=== PATIENT | male | born 1990 | race Caucasian/White ===

== ENCOUNTER 2023-03-03 07:58 | Emergency (ER) | payer OTHER ==
[2023-03-03] MEDS ORDERED: MECLIZINE 12.5 MG TABLET PO STA (08:30)
[2023-03-03 08:53] LABS: BASOPHILS # (AUTO) 0.1 10^3/uL (0.0-0.1); BASOPHILS % (AUTO) 0.9 %; EOSINOPHILS # (AUTO) 0.1 10^3/uL (0.0-0.7); EOSINOPHILS % (AUTO) 1.1 %; HCT - HEMATOCRIT 46.9 % (42.0-52.0); HGB - HEMOGLOBIN 15.6 g/dL (14.0-18.0); LYMPHOCYTES # (AUTO) 1.3 10^3/uL (1.5-3.5); LYMPHOCYTES % (AUTO) 23.6 %; MEAN CORPUSCULAR HEMOGLOBIN 29.7 pg (27.0-31.0); MEAN CORPUSCULAR HGB CONC 33.3 g/dL (32.0-36.0); MEAN CORPUSCULAR VOLUME 89.3 fL (80.0-94.0); MEAN PLATELET VOLUME 9.2 fL (7.4-11.4); MONOCYTES # (AUTO) 0.4 10^3/uL (0.0-1.0); NEUTROPHILS # (AUTO) 3.7 10^3/uL (1.5-6.6); PLT - PLATELET COUNT 277 10^3/uL (130-450); RED BLOOD COUNT 5.25 10^6/uL (4.70-6.10); RED CELL DISTRIBUTION WIDTH 12.1 % (12.0-15.0); WHITE BLOOD COUNT 5.5 x10^3/uL (4.8-10.8)
[2023-03-03 09:06] LABS: ALBUMIN 4.3 g/dL (3.2-5.5); ALBUMIN/GLOBULIN RATIO 1.5 (1.0-2.2); BILIRUBIN,TOTAL 0.3 mg/dL (0.2-1.0); CALCIUM 9.2 mg/dL (8.5-10.3); CREATININE 0.9 mg/dL (0.6-1.3); MAGNESIUM 1.9 mg/dL (1.7-2.3); POTASSIUM 3.9 mmol/L (3.5-4.5); TOTAL PROTEIN 7.2 g/dL (6.4-8.9)
--- NOTE | 2023-03-03 09:14 | ED Physician Documentation ---
PD HPI HEENT - Stated complaint Stated Complaint: DIZZY/DISORIENTED/BLURRED VISION - Chief complaint Chief Complaint: General - History obtained from History obtained from: Patient, EMS - History of Present Illness Timing - onset: Today Timing - duration: Minutes Timing - details: Abrupt onset (onset of vertigo this morning in shower ewhen turned head/moved. No headache nor other focal symptoms. Improved with sitting down for few minutes. Homer okay then until in work and leaned back in his chair and rested head back on headrest, abrupt vertigo again. This persisted several minutes.), Intermittant Location: Other (vertigo with head movement, improves when sits still.) Worsens: Position Associated symptoms: No: Fever, Congestion, Rhinorrhea, Headache Similar symptoms before: Has not had sx before Recently seen: Not recently seen Review of Systems Constitutional: denies: Fever, Chills Ears: denies: Ear pain, Drainage/discharge, Tinnitus/ringing Nose: denies: Rhinorrhea / runny nose, Congestion, Sinus pressure / pain Throat: denies: Sore throat Respiratory: denies: Cough Musculoskeletal: denies: Neck pain, Back pain Neurologic: denies: Focal weakness, Numbness, Difficulty speaking, Confused, Altered mental status PD PAST MEDICAL HISTORY - Past Medical History Cardiovascular: None Respiratory: None Neuro: None Endocrine/Autoimmune: None - Present Medications Home Medications: Ambulatory Orders Medication Instructions Recorded Confirmed Cetirizine [ZyrTEC] 10 mg PO BID #14 tablet 03/03/23 Meclizine HCl [Motion Sickness] 25 mg PO Q6H PRN #30 tablet 03/03/23 dexAMETHasone [Decadron] 4 mg PO DAILY #5 tablet 03/03/23 - Allergies Allergies/Adverse Reactions: Allergies Allergy/AdvReac Type Severity Reaction Status Date / Time No Known Drug Allergies Allergy Verified 03/03/23 08:07 PD ED PE NORMAL - Vitals Vital signs reviewed: Yes - General General: Alert and oriented X 3, No acute distress (he feels okay when just sitting still on cart. ), Well developed/nourished - HEENT HEENT: PERRL, EOMI (nystagmus to the left after turning head and having vertigo symptoms. ), Ears normal, Pharynx benign - Neck Neck: Supple, no meningeal sign, No adenopathy, No bruit - Cardiac Cardiac: RRR, No murmur - Respiratory Respiratory: Clear bilaterally - Derm Derm: Normal color, Warm and dry - Extremities Extremities: Normal ROM s pain, No edema, No calf tenderness / cord - Neuro Neuro: Alert and oriented X 3, medical support specialist 2-12 intact, No motor deficit, No sensory deficit, Normal speech Eye Opening: Spontaneous Motor: Obeys Commands Verbal: Oriented GCS Score: 15 Results - Vitals Vitals: Vital Signs - 24 hr 03/03/23 03/03/23 03/03/23 08:04 10:07 11:57 Temperature 36.6 C 36.6 C Heart Rate 86 77 76 Respiratory 16 18 15 Rate Blood Pressure 141/100 H 121/73 115/95 H O2 Saturation 96 98 97 Oxygen O2 Source Room air - Labs Labs: Laboratory Tests 03/03/23 03/03/23 08:44 08:44 WBC 5.5 RBC 5.25 Hgb 15.6 Hct 46.9 MCV 89.3 MCH 29.7 MCHC 33.3 RDW 12.1 Plt Count 277 MPV 9.2 Neut # (Auto) 3.7 Lymph # (Auto) 1.3 L Andrew # (Auto) 0.4 Eos # (Auto) 0.1 Baso # (Auto) 0.1 Absolute Nucleated RBC 0.00 Nucleated RBC % 0.0 Sodium 138 Potassium 3.9 Chloride 106 Carbon Dioxide 27 Anion Gap 5.0 L BUN 12 Creatinine 0.9 Estimated GFR (MDRD) 97 Glucose 113 H Calcium 9.2 Magnesium 1.9 Total Bilirubin 0.3 AST 24 ALT 47 Alkaline Phosphatase 71 Total Protein 7.2 Albumin 4.3 Globulin 2.9 Albumin/Globulin Ratio 1.5 Lipase 10 L PD Medical Decision Making - ED course Complexity details: considered differential (positional vertigo with cessation of symptoms when holds still, symptoms with head movement. No other neuro symptoms. Has nystagmus with vertigo. Seems peripheral and especially with his age. Low risk factors for central vertigo.), d/w patient ED course: he takes meds to reduce migraines and says is irregular at taking them. He had not taken meds for the past week or so and then resumed yesterday. Has been without for days/week before though. Meds are Lexapro 20 mg daily and Elavil daily. Does not sound like it should not affect him. No URI symptoms, no head injury, no other meds. Departure - Departure Disposition: 01 Home, Self Care Clinical Impression: Positional vertigo Condition: Stable Record reviewed to determine appropriate education?: Yes Instructions: ED Vertigo Unspecified Follow-Up: STEPHAN Andre [Provider Group] Prescriptions: dexAMETHasone [Decadron] 4 mg PO DAILY #5 tablet Meclizine HCl [Motion Sickness] 25 mg PO Q6H PRN #30 tablet PRN Reason: Vertigo Cetirizine [ZyrTEC] 10 mg PO BID #14 tablet Comments: Your positional vertigo sounds like it abnormal activity if you are in your ear/balance center. Sometimes this can be from inflammation or allergies or be the early sign of a viral illness. Rest at home today and move gently and slowly. Stay well-hydrated. I would suggest an anti-inflammatory of dexamethasone for the next few days presuming inflammation in the inner ear. Also cetirizine antihistamine twice daily for the next several days to week. To that add meclizine every 6 hours if needed for persistent vertigo. Commonly I would anticipate this to improve over a day or 2 and be transient. See if other symptoms develop such as congestion or head cold symptoms. Follow-up with your primary care if not improved over the next couple of days return if worse or other symptoms associated with that. I sent prescriptions to [facility] pharmacy. The I will write a note for off work today and tomorrow. Forms: PCP List, Activity restrictions Discharge Date/Time: 03/03/23 12:25
[2023-03-03] MEDS ORDERED: SODIUM CHLORIDE 0.9% 1,000 ML IV STA (10:09)
[2023-03-03] MEDS ORDERED: DEXAMETHASONE 10 MG/ML VIAL IVP STA (10:13)
[2023-03-03] MEDS ORDERED: diazePAM INJ 5 MG/ML SYRINGE IVP STA (10:14)
[2023-03-03 12:05] VITALS: BP 115/95; O2SAT 97
== END 2023-03-03 12:25 | disposition home or self-care (01) ==
LOC: ED 07:58
DX: H81.10 Benign paroxysmal vertigo, unspecified ear (principal)
CPT/HCPCS: 36415; 80053; 83690; 83735; 85025; 93005; 96374; 96375; 99283; 99284; A9270